=== PATIENT | male | born 1970 | race Caucasian/White ===

== ENCOUNTER 2018-04-26 06:55 | Day surgery (SDC) | payer BC ==
[~2018-04-26] VITALS: Ht 180.3 cm; Wt 87.5 kg
[2018-04-26] VITALS (7 sets, daily range): BP systolic 111–124
[2018-04-26] MEDS ORDERED: CEFAZOLIN SOD 1 GM in D5W 50 ML IV ONE (07:00)
[2018-04-26] MEDS ORDERED: IOHEXOL 50 ML IV ONE (07:45)
[2018-04-26] MEDS ORDERED: NS IRRIG SOLN 1000 ML IR ONE (09:00)
[2018-04-26] MEDS ORDERED: PROPOFOL 200MG/ 20ML VIAL (DIPRIVAN) IV ONE (09:00)
[2018-04-26] MEDS ORDERED: fentaNYL CITRATE 250 MCG/5 ML AMP IV ONE (09:00)
[2018-04-26] MEDS ORDERED: LR 1,000 ML IV.SOLN IV ONE (09:00)
[2018-04-26] MEDS ORDERED: BUPIVACAINE /PF 0.25% 30 ML VIAL INJ ONE (09:00)
[2018-04-26] MEDS ORDERED: SEVOFLURANE 15 MIN GAS INH ONE (09:00)
[2018-04-26] MEDS ORDERED: ONDANSETRON HCL 4 MG/2 ML VIAL IVP ONE (09:00)
[2018-04-26] MEDS ORDERED: ROCURONIUM BROMIDE 10 MG/ML (ZEMURON) IV ONE (09:00)
[2018-04-26] MEDS ORDERED: GLYCOPYRROLATE 0.2 MG/ML VIAL IJ ONE (09:00)
[2018-04-26] MEDS ORDERED: MIDAZOLAM HCL 5 MG/5 ML VIAL IVP ONE (09:00)
[2018-04-26] MEDS ORDERED: NEOSTIGMINE METHYLSULFATE 1 MG/ML, 10 ML VIAL IVP ONE (09:00)
[2018-04-26] MEDS ORDERED: METOCLOPRAMIDE HCL 10 MG/2 ML VIAL IVP PRN (09:30)
[2018-04-26] MEDS ORDERED: MORPHINE 4 MG/ML INJ. SYRINGE IVP PRN ×2 (09:30)
[2018-04-26] MEDS ORDERED: LR 1,000 ML IV SCH (09:30)
[2018-04-26] MEDS: MORPHINE 4 MG/ML INJ. SYRINGE IVP PRN ×3 (10:30→11:00)
[2018-04-26] MEDS ORDERED: MORPHINE 4 MG/ML INJ. SYRINGE ONE ×2 (10:37→10:59)
[2018-04-26] MEDS ORDERED: HYDROmorphone 2 MG/ML VIAL IVP PRN (11:00)
[2018-04-26] MEDS ORDERED: HYDROcodone/ACETAMIN 5-325 MG TAB (NORCO/ VICODIN) PO ONE (11:45)
[2018-04-26 13:18] LABS: HEMOGLOBIN 14.1 g/dL (14.0-18.0)
[2018-04-26] MEDS ORDERED: HYDROcodone/ACETAMIN 5-325 MG TAB (NORCO/ VICODIN) PO PRN (15:15)
[2018-04-26] MEDS: LR 1,000 ML IV SCH (16:58)
[2018-04-26] MEDS: IBUPROFEN 800 MG TABLET PO PRN (18:07)
[2018-04-26 18:19] LABS: BASOPHILS % (AUTO) 0.1 % (0.0-2.0); EOSINOPHILS % (AUTO) 0.1 % (0.0-4.0); HEMATOCRIT 39.1 % (36-54); HEMOGLOBIN 13.6 g/dL (14.0-18.0); LYMPHOCYTES # (AUTO) 0.7 K/uL (1.0-5.5); LYMPHOCYTES % (AUTO) 9.4 % (20.5-51.5); MEAN CORPUSCULAR HEMOGLOBIN 30 pg (27-31); MEAN CORPUSCULAR HGB CONC 35 % (32-36); MEAN CORPUSCULAR VOLUME 87 fL (79.0-98.0); MONOCYTES # (AUTO) 0.4 K/uL (0.0-1.0); MONOCYTES % (AUTO) 5.4 % (1.7-9.3); NEUTROPHILS # (AUTO) 6.6 K/uL (1.8-7.7); PLATELET COUNT (AUTO) 149 K/uL (130-430); RED BLOOD CELL COUNT(AUTO) 4.52 MIL/uL (4.2-6.2); RED CELL DISTRIBUTION WIDTH 11.5 % (9.0-15.0); WHITE BLOOD COUNT (AUTO) 7.7 K/uL (4.8-10.8)
[2018-04-26 18:23] LABS: CALCIUM 8.2 mg/dL (8.4-11.0); CREATININE 1.13 mg/dL (0.55-1.30)
[2018-04-26 18:29] LABS: ALBUMIN 3.6 g/dL (3.4-4.8); TOTAL BILIRUBIN 0.8 mg/dL (0.0-1.0)
[2018-04-26] MEDS ORDERED: SIMETHICONE 80 MG TAB.CHEW PO ONE (18:45)
[2018-04-26] MEDS: SIMETHICONE 80 MG TAB.CHEW PO SCH (22:07)
[2018-04-27] MEDS: IBUPROFEN 800 MG TABLET PO PRN (00:32)
[2018-04-27 02:45] VITALS: BP_SYST 113
[2018-04-27 03:45] VITALS: BP_SYST 102
[2018-04-27] MEDS: LR 1,000 ML IV SCH (03:50)
[2018-04-27 04:45] VITALS: BP_SYST 116
[2018-04-27] MEDS: SIMETHICONE 80 MG TAB.CHEW PO SCH (08:29)
[2018-04-27 08:34] VITALS: BP_SYST 117
[2018-04-27 09:22] VITALS: BP_SYST 117
== END 2018-04-27 09:45 | disposition home or self-care (01) ==
LOC: SDS 06:55 → SMU 17:53 → SDS 04-27 09:45
PROVIDERS: ATTEND Colon & Rectal Surgery
DX: K80.10 Calculus of gallbladder with chronic cholecystitis without obstruction (principal); Z79.899 Other long term (current) drug therapy; K76.0 Fatty (change of) liver, not elsewhere classified
CPT/HCPCS: 36415; 74300; 76000; 80053; 85018-TC; 85025; 88304; C1727; C1758; J0690; J2250; J2270; J2405; J2704; J2710; J3010; J3490; J7060; J7120; Q9967